=== PATIENT | male | born 1950 | race Caucasian/White ===

== ENCOUNTER 2021-07-10 10:20 | Inpatient (IN) ==
[2021-07-10] MEDS ORDERED: *HR* Heparin 5,000 UNIT/ML VIAL IVP PRN ×2 (11:51)
[2021-07-10] MEDS ORDERED: *HR* Heparin 5,000 UNIT/ML VIAL IVP ONE ×2 (11:51→12:30)
[2021-07-10] MEDS ORDERED: Naloxone 0.4 MG/ML INJ IVP PRN (11:51)
[2021-07-10 12:18] LABS: Basophils # 0.1 K/mcL (0.0-0.2); Basophils % 0.5 %; Eosinophils # 0.4 K/mcL (0.0-0.6); Eosinophils % 4.2 %; Hematocrit 40.6 % (37.5-50.1); Hemoglobin 12.8 g/dL (12.9-16.9); Immature Granulocytes % 0.2 % (0-4); Lymphocytes # 1.4 K/mcL (0.6-4.6); Lymphocytes % 14.4 %; Mean Corpuscular HGB Conc 31.5 g/dL (31.6-35.5); Mean Corpuscular Hemoglobin 24.2 pg (28.0-33.3); Mean Corpuscular Volume 76.9 fL (83.0-100.0); Mean Platelet Volume 10.7 fL (9.4-12.4); Monocytes % 10.2 %; Neutrophils # 6.9 K/mcL (1.6-8.9); Platelet Count 209 K/mcL (140-400); Red Blood Count 5.28 M/mcL (4.19-5.50); Red Cell Distribution Width 15.8 % (11.5-14.5); Segmented Neutrophils % 70.5 %; White Blood Count 9.8 K/mcL (4.3-11.1)
[2021-07-10 12:25] LABS: Heparin anti-factor XA UFH < 0.04 IU/mL (0.30-0.70); INR 1.1; Prothrombin Time 12.7 Seconds (9.4-12.1)
[2021-07-10] MEDS: Heparin 25,000UNIT/250ML 1/2NS 25,000 UNIT/250 ML IV.SOLN IVC SCH (12:29)
[2021-07-10 12:39] LABS: BUN/Creatinine Ratio 17 (6-26); Blood Urea Nitrogen 15 mg/dL (8-23); Calcium 8.8 mg/dL (8.6-10.3); Carbon Dioxide 27 mEq/L (23-29); Chloride 102 mEq/L (98-107); Glucose 111 mg/dL (70-105); Osmolality,Calculated 282 (280-300); Potassium 3.6 mEq/L (3.5-5.1); Sodium 135 mEq/L (136-145); eGFR For African Americans > 60 (> 60); eGFR For Non-African Americans > 60 (> 60)
[2021-07-10] MEDS ORDERED: *HR* HYDROcodone/Acet 5/325 mg TABLET PO PRN (15:47)
[2021-07-11 01:31] LABS: Basophils # 0.1 K/mcL (0.0-0.2); Basophils % 0.5 %; Eosinophils # 0.5 K/mcL (0.0-0.6); Eosinophils % 5.1 %; Hematocrit 39.6 % (37.5-50.1); Hemoglobin 12.6 g/dL (12.9-16.9); Immature Granulocytes % 0.3 % (0-4); Lymphocytes # 2.6 K/mcL (0.6-4.6); Mean Corpuscular HGB Conc 31.8 g/dL (31.6-35.5); Mean Corpuscular Hemoglobin 24.7 pg (28.0-33.3); Mean Corpuscular Volume 77.5 fL (83.0-100.0); Mean Platelet Volume 11.1 fL (9.4-12.4); Monocytes # 0.9 K/mcL (0.0-1.3); Monocytes % 8.9 %; Neutrophils # 6.3 K/mcL (1.6-8.9); Platelet Count 237 K/mcL (140-400); Red Blood Count 5.11 M/mcL (4.19-5.50); Red Cell Distribution Width 15.9 % (11.5-14.5); Segmented Neutrophils % 60.2 %; White Blood Count 10.5 K/mcL (4.3-11.1)
[2021-07-11 01:38] LABS: Heparin anti-factor XA UFH 0.55 IU/mL (0.30-0.70)
[2021-07-11 01:45] LABS: BUN/Creatinine Ratio 15 (6-26); Blood Urea Nitrogen 13 mg/dL (8-23); Calcium 8.8 mg/dL (8.6-10.3); Carbon Dioxide 27 mEq/L (23-29); Chloride 102 mEq/L (98-107); Glucose 97 mg/dL (70-105); Osmolality,Calculated 284 (280-300); Phosphorous 3.3 mg/dL (2.7-4.5); Potassium 3.6 mEq/L (3.5-5.1); Sodium 137 mEq/L (136-145); eGFR For African Americans > 60 (> 60); eGFR For Non-African Americans > 60 (> 60)
[2021-07-11] MEDS: Heparin 25,000UNIT/250ML 1/2NS 25,000 UNIT/250 ML IV.SOLN IVC SCH ×2 (02:06→16:34)
[2021-07-11] MEDS: Aspirin Enteric Coated 81 MG Tablet PO SCH (08:07)
[2021-07-11] MEDS: hydroCHLOROthiazide 25 MG TABLET PO SCH (08:07)
[2021-07-11 14:12] LABS: INR 1.2; Prothrombin Time 13.6 Seconds (9.4-12.1)
[2021-07-11] MEDS ORDERED: *HR* Warfarin 5 MG TABLET PO ONE (18:00)
[2021-07-11] MEDS ORDERED: Warfarin perPT PO PRN (18:00)
[2021-07-12 02:42] LABS: INR 1.1; Prothrombin Time 12.8 Seconds (9.4-12.1)
[2021-07-12] MEDS: Aspirin Enteric Coated 81 MG Tablet PO SCH (10:40)
[2021-07-12] MEDS: hydroCHLOROthiazide 25 MG TABLET PO SCH (10:40)
[2021-07-12] MEDS: Heparin 25,000UNIT/250ML 1/2NS 25,000 UNIT/250 ML IV.SOLN IVC SCH (15:11)
[2021-07-12] MEDS ORDERED: *HR* Warfarin 5 MG TABLET PO ONE (18:00)
[2021-07-13] MEDS: Heparin 25,000UNIT/250ML 1/2NS 25,000 UNIT/250 ML IV.SOLN IVC SCH ×3 (00:30→16:24)
[2021-07-13 02:51] LABS: INR 1.2; Prothrombin Time 13.5 Seconds (9.4-12.1)
[2021-07-13] MEDS: hydroCHLOROthiazide 25 MG TABLET PO SCH (09:14)
[2021-07-13] MEDS: Aspirin Enteric Coated 81 MG Tablet PO SCH (09:14)
[2021-07-13] MEDS ORDERED: *HR* Warfarin 5 MG TABLET PO ONE (18:00)
[2021-07-13] MEDS: *HR* Enoxaparin 150 MG/ML SYRINGE SQ SCH (18:38)
[2021-07-14 03:36] LABS: Basophils # 0.1 K/mcL (0.0-0.2); Basophils % 0.7 %; Eosinophils # 0.4 K/mcL (0.0-0.6); Eosinophils % 5.1 %; Hematocrit 40.3 % (37.5-50.1); Hemoglobin 12.6 g/dL (12.9-16.9); Immature Granulocytes % 0.2 % (0-4); Lymphocytes # 2.6 K/mcL (0.6-4.6); Lymphocytes % 29.8 %; Mean Corpuscular HGB Conc 31.3 g/dL (31.6-35.5); Mean Corpuscular Volume 76.8 fL (83.0-100.0); Mean Platelet Volume 10.7 fL (9.4-12.4); Monocytes # 0.6 K/mcL (0.0-1.3); Monocytes % 7.4 %; Neutrophils # 4.9 K/mcL (1.6-8.9); Platelet Count 275 K/mcL (140-400); Red Blood Count 5.25 M/mcL (4.19-5.50); Red Cell Distribution Width 16.1 % (11.5-14.5); Segmented Neutrophils % 56.8 %; White Blood Count 8.7 K/mcL (4.3-11.1)
[2021-07-14 03:43] LABS: Heparin anti-factor XA UFH 0.98 IU/mL (0.30-0.70)
[2021-07-14 03:44] LABS: INR 1.2; Prothrombin Time 13.6 Seconds (9.4-12.1)
[2021-07-14 03:52] LABS: BUN/Creatinine Ratio 20 (6-26); Blood Urea Nitrogen 19 mg/dL (8-23); Calcium 9.2 mg/dL (8.6-10.3); Carbon Dioxide 28 mEq/L (23-29); Chloride 103 mEq/L (98-107); Glucose 106 mg/dL (70-105); Osmolality,Calculated 287 (280-300); Sodium 137 mEq/L (136-145); eGFR For African Americans > 60 (> 60); eGFR For Non-African Americans > 60 (> 60)
[2021-07-14] MEDS: *HR* Enoxaparin 150 MG/ML SYRINGE SQ SCH (06:06)
[2021-07-14] MEDS: Aspirin Enteric Coated 81 MG Tablet PO SCH (08:01)
[2021-07-14] MEDS: hydroCHLOROthiazide 25 MG TABLET PO SCH (08:01)
[2021-07-14 08:48] VITALS: BP 126/78; PULSE 55; TEMP 97.6; O2SAT 96
[2021-07-14] MEDS ORDERED: *HR* Warfarin 5 MG TABLET PO ONE (18:00)
[2021-07-14] MEDS ORDERED: *HR* Warfarin 7.5 MG TABLET PO ONE (18:00)
== END 2021-07-14 13:15 | disposition home or self-care (01) | DRG 300 ==
LOC: EMEROOARM 10:20 → 3ANU 10:20 → SUATTDRO 12:47 → 3ANU 13:33
PROVIDERS: ADMIT Internal Medicine; ATTEND Internal Medicine